=== PATIENT | female | born 1970 ===

== ENCOUNTER 2019-04-01 06:30 | Day surgery (SDC) | payer MEDICAID ==
[2016-02-14 11:25] VITALS: BMI 23.5
[2019-03-25 09:47] VITALS: RESP 18
[2019-04-01] MEDS ORDERED: Propofol 10 mg/ml Inj (20 ML) ONE (07:25)
--- NOTE | 2019-04-01 07:30 | CP.SDSHP ---
Same Day Surgery H & P - History Proposed Procedure: hysteroscopy/polypectomy/D/C Pre-Op Diagnosis: irregular bleeding; endometrial polyp by sono - Previous Medical/Surgical History Endocrine/Metabolic: Thyroid Disease, Other Comments: hx of thyroid ca. Previous Surgical History: axillary surg 1994; breast bx 1997; D/C 2001; C/S 2004; breast bx 2011; hernia rep 2013; hysteroscopy 2015; rt inguinal hernia revision 2016; thyroid surgery 2018 - Allergies Allergies: Allergies No Known Allergies Allergy (Verified 02/14/16 11:25) - Current Medications Current Medications: levothyroxine; vitamin D - Physical Exam General Appearance: NAD Vital Signs: Vital Signs 04/01/19 07:17 Temperature 98.4 F Pulse Rate 73 Respiratory 18 Rate Blood Pressure 115/78 O2 Sat by Pulse 99 Oximetry Mental Status: Alert & Oriented x3 Neuro: WNL Heart: WNL Lungs: WNL GI: WNL - {Optional Preform as Required} Breast: Other Abdomen: Other [employer]NALYT[employer]: Other Other Pertinent Findings: abd with old scars; sonogram showing endometrial polyp - Impression Impression: irregular uterine bleeding with endometrial polyp - Date & Time Date: 04/01/19 Time: 07:42 Short Stay Discharge - Short Stay Discharge Admitting Diagnosis/Reason for Visit: N92.6/N84.0 Disposition: HOME/ ROUTINE Referrals: Rosalio Stover MD [Primary Care Provider] -
[2019-04-01] MEDS ORDERED: Midazolam 2 MG/2 ML VIAL ONE (07:53)
[2019-04-01] MEDS ORDERED: cefOXitin IV 1 gm in Dextrose 1 GM/50 ML BAG IVPB ONE (07:56)
[2019-04-01] MEDS ORDERED: Lactated Ringer's 1,000 ML IV ONE (08:00)
[2019-04-01] MEDS ORDERED: Dexamethasone 4 mg/1 ml ONE (08:17)
[2019-04-01] MEDS ORDERED: HYDROmorphone 0.5 mg/0.5 ml ISec IVP PRN (08:46)
[2019-04-01] MEDS ORDERED: Dexamethasone 4 mg/1 ml IVP PRN (08:46)
[2019-04-01] MEDS ORDERED: Oxycodone/Acetaminophen 5/325 mg Tab PO PRN (08:56)
[2019-04-01 10:33] VITALS: BP 128/74; PULSE 70; TEMP 98.2; O2SAT 100
--- NOTE | 2019-04-01 14:40 | CP.SDSHP ---
Same Day Surgery H & P - Allergies Allergies: Allergies No Known Allergies Allergy (Verified 02/14/16 11:25) - Physical Exam Vital Signs: Vital Signs 04/01/19 04/01/19 04/01/19 07:17 08:40 08:55 Temperature 98.4 F 98 F Pulse Rate 73 78 76 Respiratory 18 18 18 Rate Blood Pressure 115/78 128/83 126/88 O2 Sat by Pulse 99 100 100 Oximetry 04/01/19 04/01/19 04/01/19 09:10 09:25 09:40 Temperature Pulse Rate 67 74 68 Respiratory 18 18 18 Rate Blood Pressure 120/78 127/83 110/72 O2 Sat by Pulse 100 100 100 Oximetry 04/01/19 04/01/19 04/01/19 09:55 10:10 10:25 Temperature Pulse Rate 72 71 Respiratory 18 18 Rate Blood Pressure 129/75 114/83 O2 Sat by Pulse 100 100 98 Oximetry 04/01/19 10:26 Temperature 98.2 F Pulse Rate 70 Respiratory 18 Rate Blood Pressure 128/74 O2 Sat by Pulse 100 Oximetry Short Stay Discharge - Short Stay Discharge Admitting Diagnosis/Reason for Visit: N92.6/N84.0 Referrals: Rosalio Stover MD [Primary Care Provider] - Follow-up: 2 wks in office Progress Note/Discharge Note with Instructions: tolerated procedure well and recovered well D/C home with instructions and follow up office 2 wks Rx for Percocet given
--- NOTE | 2019-04-02 17:25 | OP ---
PROCEDURE DATE: 04/01/2019 PREOPERATIVE DIAGNOSIS: Irregular uterine bleeding and endometrial polyp by ultrasound. POSTOPERATIVE DIAGNOSES: 1. Irregular uterine bleeding and endometrial polyp by ultrasound. 2. Pending pathology report. PROCEDURE PERFORMED: 1. Hysteroscopy with endometrial polypectomy using a MyoSure technique. 2. Fractional dilatation and curettage. SURGEON: Rosalio Stover MD ANESTHESIA USED: General. ANESTHESIA ADMINISTERED BY: Jagdish Beauchamp MD, Jr. ESTIMATED BLOOD LOSS: 50 mL DRAINS USED: None. REPLACEMENT USED: None. FINDINGS: 1. Uterus anteverted, mobile, about 10-week size, appears smooth to palpation and sounded to about 9 cm. 2. Cervix appears thick, mobile, no growth or lesion to visualization. 3. No adnexal masses to palpation bilaterally. 4. Hysteroscopy show endometrial polyps, MyoSure polypectomy was then performed under direct visualization without any complications. 5. Fractional dilatation and curettage performed without any complication. DESCRIPTION OF PROCEDURE: The patient was taken to the operating room and placed on the operating room table in a supine position. Following induction of general anesthesia, the patient was then replaced in the dorsal lithotomy position. Perineum, genital and pelvic areas were draped and prepped in the usual sterile manner. At this time, a sterile catheter was then placed into the bladder and clear fluid was then evacuated from the bladder. The patient was then examined under the anesthesia with the above findings. Heavy weighted speculum was then placed in the posterior wall of the vagina, thus exposing the cervix. The anterior lip of the cervix was then grasped using a single-tooth tenaculum and retracted superiorly. At this time, we then proceeded using a Kristyn curette, to curette the endocervical cavity and area. Minimal amount of tissue obtained and sent to pathology. Following this, the endocervical canal was then gently dilated using Yunier dilators in an increasing size manner. The endometrial cavity was then sounded gingerly and sounded to about 9 cm. Following this, a hysteroscope was then placed in the cervical canal, and under direct visualization, was advanced into the endometrial cavity. Upon reaching the endometrial cavity, couple of endometrial polyps were noted to be present, and using MyoSure technique, polypectomy was then performed under direct visualization without any complications. Specimen sent to pathology for proper pathological evaluation. Following this, the hysteroscope was then removed under direct visualization and the endometrial cavity was then curetted using sharp curettage. Minimal amount of tissue obtained and sent to pathology for proper pathological evaluation. Uterus massaged, contracted well. Single-toothed tenaculum removed and no bleeding noted from the tenaculum site. The patient tolerated the procedure well. There were no complications. She was transferred to the recovery room in satisfactory condition. Rosalio Stover MD MTDSamantha
== END 2019-04-01 12:06 | disposition home or self-care (01) ==
LOC: H.OPSURG 06:30
PROVIDERS: ATTEND Specialist
DX: N92.6 Irregular menstruation, unspecified (principal); N84.0 Polyp of corpus uteri; E03.9 Hypothyroidism, unspecified
CPT/HCPCS: 58558; 88305; J0694; J1100; J1885; J2001; J2250; J2405; J2704; J3010; J7030; J7120